=== PATIENT | male | born 1985 | race African-American/Black ===

== ENCOUNTER 2018-05-19 11:05 | Inpatient (IN) ==
[2018-05-19] MEDS ORDERED: ASPIRIN 325 MG TABLET PO STA (11:31)
[2018-05-19 12:00] LABS: Basophils % 0.4 % (0.0-0.8); Eosinophils % 0.2 % (0.00-10.9); Hematocrit 41.5 VOL% (42.0-52.0); Hemoglobin 13.9 GM/DL (14.0-18.0); Immature Granulocytes % 0.2 %; Immature Granulocytes Absolute 0.02 #; Lymphocytes # 1.5 10*3/uL (1.4-4.0); Lymphocytes % 14.7 % (21.2-54.2); Mean Corpuscular HGB Conc 33.5 GM/DL (32-36); Mean Corpuscular Hemoglobin 33 PG (27-34); Mean Corpuscular Volume 97.4 FL (87-102); Monocytes # 0.6 10*3/uL (0.11-0.8); Monocytes % 6.4 % (1.7-12.7); Neutrophils # 7.8 10*3/uL (1.4-7.4); Neutrophils % 78.1 % (38.7-73.9); Platelet Count 184 T/CUMM (130-400); Red Blood Count 4.26 MC/CUMM (3.8-5.5); Red Cell Distribution Width 13.9 % (9.3-17.3)
[2018-05-19 12:17] LABS: Calcium 8.4 MG/DL (8.5-10.1); Osmolality,Calculated 273.7 MOS/KG (273-304); Potassium 3.8 MMOL/L (3.5-5.1)
[2018-05-19] MEDS ORDERED: NITROGLYCERIN SL 0.4 MG TABLET SL ONE (12:24)
[2018-05-19] MEDS ORDERED: NITROGLYCERIN SL 0.4 MG TABLET SL STA (12:31)
[2018-05-19] MEDS ORDERED: METOPROLOL TARTRATE 5 MG/5 ML VIAL IV STA (15:08)
[2018-05-19] MEDS ORDERED: ENOXAPARIN 80 MG/0.8 ML SYRINGE SUBCUT STA (15:08)
[2018-05-19] MEDS ORDERED: NITROGLYCERIN 2% OINT 1 INCH/GM PACK TOP STA (15:08)
[2018-05-19] MEDS ORDERED: ONDANSETRON 4 MG/2 ML VIAL IV PRN (15:43)
[2018-05-19] MEDS ORDERED: MAGNESIUM SULF RIDER 2 GM in PREMIX 1 EACH IV PRN (15:43)
[2018-05-19] MEDS ORDERED: ZALEPLON 5 MG CAPSULE PO PRN (15:43)
[2018-05-19] MEDS ORDERED: MAGNESIUM SULF RIDER 4 GM in PREMIX 1 EACH IV PRN (15:43)
[2018-05-19] MEDS ORDERED: NITROGLYCERIN SL 0.4 MG TABLET SL PRN (15:47)
[2018-05-19] MEDS ORDERED: amLODIPine 5 MG TABLET PO STA (15:49)
[2018-05-19 15:57] LABS: Barbiturates Screen,Urine Negative (Negative); Benzodiazepines Screen,Urine Negative (Negative); Cannabinoid Screen,Urine Positive (Negative); Opiate Screen,Urine Negative (Negative); Phencyclidine Screen,Urine Negative (Negative)
[2018-05-19] MEDS: DEXTROSE 5% NACL 0.9% 1,000 ML IV SCH (17:38)
[2018-05-19] MEDS: ENOXAPARIN 60 MG/0.6 ML SYRINGE SUBCUT SCH ×2 (17:38→17:43)
[2018-05-19] MEDS: NITROGLYCERIN 2% OINT 1 INCH/GM PACK TOP SCH (21:39)
[2018-05-20] MEDS: DEXTROSE 5% NACL 0.9% 1,000 ML IV SCH ×2 (01:48→11:09)
[2018-05-20] MEDS: MORPHINE 4 MG/1 ML VIAL IV PRN ×2 (03:09→19:45)
[2018-05-20] MEDS: ENOXAPARIN 60 MG/0.6 ML SYRINGE SUBCUT SCH (04:50)
[2018-05-20 07:02] LABS: Risk Ratio 3.9; VLDL CHOLESTEROL 9.2 MG/DL
[2018-05-20] MEDS ORDERED: MAGNESIUM SULF RIDER 2 GM in PREMIX 1 EACH IV PRN (08:31)
[2018-05-20] MEDS ORDERED: DIAZEPAM 5 MG TABLET PO ONE (08:31)
[2018-05-20] MEDS ORDERED: POTASSIUM CHLORIDE RIDER 10 MEQ in PREMIX 1 EACH IV PRN (08:31)
[2018-05-20] MEDS ORDERED: diphenhydrAMINE CAP 25 MG CAPSULE PO ONE (08:31)
[2018-05-20] MEDS ORDERED: amLODIPine 10 MG TABLET PO SCH (09:00)
[2018-05-20] MEDS ORDERED: LIDOCAINE 1%/EPI INJ 20 ML VIAL ONE (09:07)
[2018-05-20] MEDS ORDERED: HEPARIN/NACL 0.9% 2 UNITS/ML 1,000 ML IV ONE (09:07)
[2018-05-20] MEDS: QUINAPRIL 5 MG TABLET PO SCH (09:12)
[2018-05-20] MEDS: PANTOPRAZOLE 40 MG TABLET PO SCH (09:12)
[2018-05-20] MEDS: SODIUM CHLORIDE 0.45% 1,000 ML IV SCH ×2 (09:13→21:58)
[2018-05-20] MEDS: ASPIRIN EC 81 MG TABLET PO SCH (09:13)
[2018-05-20] MEDS ORDERED: fentaNYL 100 MCG/2 ML VIAL ONE (09:35)
[2018-05-20] MEDS ORDERED: MIDAZOLAM 2 MG/2 ML VIAL ONE (09:35)
[2018-05-20] MEDS: NITROGLYCERIN 2% OINT 1 INCH/GM PACK TOP SCH ×2 (12:26→21:45)
[2018-05-21] MEDS: SODIUM CHLORIDE 0.45% 1,000 ML IV SCH (02:18)
[2018-05-21] MEDS ORDERED: ISOSORBIDE MONONITRATE 30 MG TABLET PO SCH (09:00)
[2018-05-21] MEDS ORDERED: amLODIPine 5 MG TABLET PO SCH (09:00)
[2018-05-21] MEDS: QUINAPRIL 5 MG TABLET PO SCH (09:30)
[2018-05-21] MEDS: ASPIRIN EC 81 MG TABLET PO SCH (09:30)
[2018-05-21] MEDS: PANTOPRAZOLE 40 MG TABLET PO SCH (09:30)
[2018-05-21] MEDS ORDERED: CLOPIDOGREL 75 MG TABLET PO SCH (09:30)
[2018-05-21 16:47] VITALS: BP 121/68
[2018-05-21] MEDS ORDERED: ROSUVASTATIN 20 MG TABLET PO SCH (21:00)
[2018-05-21] MEDS ORDERED: ATORVASTATIN 40 MG TABLET PO SCH (21:00)
== END 2018-05-21 18:07 | disposition home or self-care (01) | DRG 190 ==
LOC: N.ED 11:05 → N.EDINP 15:43 → N.TELEN 16:14
PROVIDERS: ADMIT Internal Medicine Interventional Cardiology; ATTEND Internal Medicine Interventional Cardiology
PROC: CLCCHCL (ICD-10-PCS; 2018-05-20 09:45)